=== PATIENT | male | born 1965 | race American Indian/Alaskan Native ===

== ENCOUNTER 2016-03-02 23:32 | Emergency (ER) | payer MEDICARE, OTHER ==
[2016-03-03] MEDS ORDERED: CATAPRES PO ONE (00:05)
[2016-03-03] MEDS ORDERED: CATAPRES ONE (00:11)
[2016-03-03 09:29] VITALS: BP 192/92
== END 2016-03-03 12:10 | disposition left against medical advice (07) ==
LOC: ED 23:32
DX: I10 Essential (primary) hypertension (principal); E11.9 Type 2 diabetes mellitus without complications; Z53.21 Procedure and treatment not carried out due to patient leaving prior to being seen by health care provider

== ENCOUNTER 2016-03-03 15:50 | Emergency (ER) | payer MEDICARE ==
--- NOTE | 2016-03-03 16:37 | Emergency Department Report ---
Chief Complaint: High BP Stated Complaint: HIGH BLOOD PRESSURE Time Seen by Provider: 03/03/16 16:33 - HPI History of Present Illness: 50 y/o male complain of high blood pressure x 1week and half .pt state that he took all blood meds 2 hour ago with tingling in chest .pt denies any n/v/d.pt state he current dialysis pt Mon .Wed,Fri.pt complain of headache at present . - ROS Review of Systems: per HPI - Exam Vital Signs: Vital Signs 03/03/16 16:18 Temperature 98 F Pulse Rate 77 Respiratory 18 Rate Blood Pressure 202/94 O2 Sat by Pulse 100 Oximetry Physical Exam: GENERAL: The patient is well-developed and well-nourished. Patient is in NAD. HENT: Normocephalic. Atraumatic. Patient has moist mucous membranes. Throat: No erythema, swelling or exudates. EYES: Extraocular motions are intact, PERRL NECK: Supple. No meningitic signs are noted. There is no adenopathy noted. CHEST/LUNGS: Clear to auscultation bilaterally. No wheezing, rales or rhonchi noted. There is no respiratory distress noted. HEART/CARDIOVASCULAR: Regular rate and rhythm. Normal S1 S2. No murmurs, rubs , clicks, or gallops. ABDOMEN: Abdomen is soft, nontender.. Bowel sounds normoactive. There is no abdominal distention. Negative rebound tenderness. : Deferred. SKIN: There is no rash. There is no edema. There is no diaphoresis left arm fistula noted with pos. NEURO: The patient is A&Ox3. The patient has no focal neurologic deficits. MUSCULOSKELETAL: There is no tenderness or deformity. There is no limitation range of motion. PSYCH: Pt has appropriate mood and affect. MSE screening note: Focused history and physical exam performed. Due to findings the following was ordered: ED Disposition for MSE Condition: Stable
[2016-03-03 18:09] LABS: Basophils % (Auto) 1.3 % (0.0-1.8); Eosinophils % (Auto) 4.8 % (0.0-4.3); Hematocrit 36.4 % (35.5-45.6); Mean Corpuscular HGB Conc 33 % (32-34); Mean Corpuscular Hemoglobin 31 pg (28-32); Mean Corpuscular Volume 95 fl (84-94); Platelet Count 170 K/mm3 (140-440); Red Blood Count 3.82 M/mm3 (3.65-5.03); Red Cell Distribution Width 16.8 % (13.2-15.2)
[2016-03-03 18:20] LABS: INR 1.16 (0.87-1.13)
[2016-03-03 18:21] LABS: Partial Thromboplastin Time 38.3 Sec. (24.2-36.6)
[2016-03-03 18:26] LABS: Creatine Kinase MB 3.2 ng/mL (0.0-4.0)
[2016-03-03 18:27] LABS: Calcium 8.6 mg/dL (8.4-10.2); Chloride 95.9 mmol/L (98-107)
[2016-03-03] MEDS ORDERED: APRESOLINE IV ONE ×2 (23:19→23:21)
--- NOTE | 2016-03-04 02:15 | Emergency Department Report ---
HPI - General Chief Complaint: High BP Time Seen by Provider: 03/03/16 23:17 - HPI HPI: The patient is a 50-year-old male who presents for evaluation of lightheadedness elevated blood pressure. The patient has a history of diabetes. The patient states that for the past one week he has experienced mild transient lightheadedness, elicited with standing, improved with sitting down and rests. He also reports uncontrolled blood pressure for the past one to 2 weeks. The patient denies fever, syncope, chest pain, dyspnea, cough, hemoptysis, palpitations, unilateral leg swelling, calf muscle pain. ED Past Medical Hx - Past Medical History Previous Medical History?: Yes Hx Hypertension: Yes Hx Diabetes: Yes Hx Renal Disease: Yes - Surgical History Past Surgical History?: Yes Additional Surgical History: dialysis graft to left arm - Social History Smoking Status: Former Smoker Substance Use Type: Prescribed - Medications Home Medications: Home Medications Medication Instructions Recorded Confirmed Last Taken Type Carvedilol [Coreg] 25 mg PO BID 06/14/13 03/03/16 03/03/16 History Clonidine HCl [Catapres] 0.2 mg PO TID 06/14/13 03/03/16 03/03/16 History Pravastatin Sodium [Pravastatin] 40 mg PO QHS 06/14/13 03/03/16 03/02/16 History Sevelamer Carbonate [Renvela] 4 tab PO TID 06/14/13 03/03/16 03/03/16 History Terazosin HCl 2 mg PO QHS 06/14/13 03/03/16 03/02/16 History Vitamin B Comp and C/FA/Zn Cit 1 tab PO QDAY 06/14/13 03/03/16 03/02/16 History [Dialyvite 800-Zinc 15 mg Tab] glipiZIDE [glipiZIDE ER] 10 mg PO QDAY 06/14/13 03/03/16 03/02/16 History Cinacalcet [Sensipar] 30 mg PO QDAY 03/03/16 03/03/16 03/02/16 History ED Review of Systems ROS: Stated complaint: HIGH BLOOD PRESSURE Other details as noted in HPI Constitutional: denies: fever; reports episodic lightheadedness ENT: denies: throat or neck pain Respiratory: denies: cough, shortness of breath Cardiovascular: denies: chest pain Endocrine: denies unexplained weight loss or gain Gastrointestinal: denies: abdominal pain, nausea Genitourinary: denies: dysuria Musculoskeletal: denies: leg swelling Skin: denies: rash Neurological: denies: headache Hematological/Lymphatic: denies: easy bleeding or easy bruising Psych: denies sadness or hopelessness Physical Exam - Physical Exam Vital Signs: Vital Signs 03/03/16 03/03/16 03/03/16 16:18 21:16 23:17 Temperature 98 F 98.4 F Pulse Rate 77 72 71 Respiratory 18 18 14 Rate Blood Pressure 202/94 189/92 O2 Sat by Pulse 100 100 Oximetry 03/03/16 03/03/16 03/03/16 23:20 23:30 23:40 Temperature Pulse Rate 72 72 71 Respiratory 16 20 16 Rate Blood Pressure 180/82 193/95 193/95 O2 Sat by Pulse 99 98 98 Oximetry 03/03/16 03/04/16 03/04/16 23:46 00:00 00:12 Temperature Pulse Rate 72 71 72 Respiratory 18 13 Rate Blood Pressure 193/95 200/94 200/94 O2 Sat by Pulse 99 100 Oximetry 03/04/16 03/04/16 03/04/16 00:30 00:32 00:34 Temperature Pulse Rate 73 72 72 Respiratory 14 14 15 Rate Blood Pressure 200/94 176/79 176/79 O2 Sat by Pulse 100 100 100 Oximetry 03/04/16 03/04/16 03/04/16 00:36 00:38 00:40 Temperature Pulse Rate 72 72 71 Respiratory 11 L 14 14 Rate Blood Pressure 176/79 176/79 176/79 O2 Sat by Pulse 99 100 100 Oximetry 03/04/16 03/04/16 03/04/16 00:42 00:44 00:46 Temperature Pulse Rate 71 71 72 Respiratory 9 L 13 12 Rate Blood Pressure 176/79 176/79 176/79 O2 Sat by Pulse 100 100 100 Oximetry 03/04/16 03/04/16 03/04/16 00:48 00:50 00:52 Temperature Pulse Rate 71 71 71 Respiratory 13 13 10 L Rate Blood Pressure 176/79 176/79 176/79 O2 Sat by Pulse 100 99 99 Oximetry 03/04/16 00:54 Temperature Pulse Rate 70 Respiratory 12 Rate Blood Pressure 176/79 O2 Sat by Pulse 100 Oximetry Physical Exam: General: well-nourished, well-developed, no acute distress Head: Normocephalic, atraumatic Eyes: normal sclera ENT: Mucous membranes are pale and dry Neck: No neck stiffness, no cervical adenopathy Respiratory: Breath sounds equal bilaterally, no wheezing, rales, or rhonchi Cardio: S1 and S2 present, no murmurs, rubs, gallops, capillary refill is delayed Abdomen: Normoactive bowel sounds, soft abdomen, no rigidity, no guarding or rebound tenderness Musc: No pitting edema Skin: No rash Neuro: no facial drooping, normal speech Psych: Normal affect ED Course Vital Signs 03/03/16 03/03/16 03/03/16 16:18 21:16 23:17 Temperature 98 F 98.4 F Pulse Rate 77 72 71 Respiratory 18 18 14 Rate Blood Pressure 202/94 189/92 O2 Sat by Pulse 100 100 Oximetry 03/03/16 03/03/16 03/03/16 23:20 23:30 23:40 Temperature Pulse Rate 72 72 71 Respiratory 16 20 16 Rate Blood Pressure 180/82 193/95 193/95 O2 Sat by Pulse 99 98 98 Oximetry 03/03/16 03/04/16 03/04/16 23:46 00:00 00:12 Temperature Pulse Rate 72 71 72 Respiratory 18 13 Rate Blood Pressure 193/95 200/94 200/94 O2 Sat by Pulse 99 100 Oximetry 03/04/16 03/04/16 03/04/16 00:30 00:32 00:34 Temperature Pulse Rate 73 72 72 Respiratory 14 14 15 Rate Blood Pressure 200/94 176/79 176/79 O2 Sat by Pulse 100 100 100 Oximetry 03/04/16 03/04/16 03/04/16 00:36 00:38 00:40 Temperature Pulse Rate 72 72 71 Respiratory 11 L 14 14 Rate Blood Pressure 176/79 176/79 176/79 O2 Sat by Pulse 99 100 100 Oximetry 03/04/16 03/04/16 03/04/16 00:42 00:44 00:46 Temperature Pulse Rate 71 71 72 Respiratory 9 L 13 12 Rate Blood Pressure 176/79 176/79 176/79 O2 Sat by Pulse 100 100 100 Oximetry 03/04/16 03/04/16 03/04/16 00:48 00:50 00:52 Temperature Pulse Rate 71 71 71 Respiratory 13 13 10 L Rate Blood Pressure 176/79 176/79 176/79 O2 Sat by Pulse 100 99 99 Oximetry 03/04/16 00:54 Temperature Pulse Rate 70 Respiratory 12 Rate Blood Pressure 176/79 O2 Sat by Pulse 100 Oximetry ED Medical Decision Making - Lab Data Result diagrams: 03/03/16 17:37 03/03/16 17:37 - Medical Decision Making The patient was seen and examined by myself. The patient is placed on a director of cardiac cath lab and continuous pulse ox. On initial evaluation, the patient was found to be in no distress. Evaluation orders were placed. The patient is given IV Apresoline for his elevated blood pressure. Lab results revealed elevated blood sugar of 250, and the patient is given IV insulin for his hyperglycemia. Lab results are otherwise unremarkable. On reexamination the patient's blood pressure was found to decrease below range concerning for hypertensive emergency. The patient is stable for discharge with outpatient follow-up. The patient is given follow-up and return instructions. The patient expressed understanding and agreed with the plan. The patient is discharged in stable condition. Critical care attestation.: If time is entered above; I have spent that time in minutes in the direct care of this critically ill patient, excluding procedure time. ED Disposition Clinical Impression: Acute hyperglycemia, Asymptomatic hypertensive urgency, Lightheadedness, Orthostatic lightheadedness Disposition: DISCHARGED TO HOME OR SELFCARE Is pt being admited?: No Does the pt Need Aspirin: No Condition: Stable Instructions: Chronic Hypertension (ED), Lightheadedness (ED) Referrals: PRIMARY CARE [Primary Care Provider] - 3-5 Days Time of Disposition: 01:59
[2016-03-04 02:36] VITALS: BP 170/92
== END 2016-03-04 02:36 | disposition home or self-care (01) ==
LOC: ED 15:50
DX: E11.65 Type 2 diabetes mellitus with hyperglycemia (principal); I10 Essential (primary) hypertension; R42 Dizziness and giddiness; E11.9 Type 2 diabetes mellitus without complications; N28.9 Disorder of kidney and ureter, unspecified; Z87.891 Personal history of nicotine dependence; Z88.1 Allergy status to other antibiotic agents; Z88.0 Allergy status to penicillin
CPT/HCPCS: 36415; 80048; 80061; 82550; 82553; 82962; 84484; 85025; 85610; 85730; 93005; 93010; 96374; 96375; 99284; J0360; J1815

== ENCOUNTER 2016-11-17 06:36 | Emergency (ER) | payer MEDICARE ==
[2016-11-17 07:17] LABS: Basophils % (Auto) 1.2 % (0.0-1.8); Eosinophils % (Auto) 4.3 % (0.0-4.3); Hematocrit 36.5 % (35.5-45.6); Hemoglobin 12.2 gm/dl (11.8-15.2); Mean Corpuscular HGB Conc 34 % (32-34); Mean Corpuscular Hemoglobin 30 pg (28-32); Mean Corpuscular Volume 90 fl (84-94); Platelet Count 136 K/mm3 (140-440); Red Blood Count 4.06 M/mm3 (3.65-5.03); Red Cell Distribution Width 15.5 % (13.2-15.2); White Blood Count 5.5 K/mm3 (4.5-11.0)
[2016-11-17 07:32] LABS: Calcium 9.2 mg/dL (8.4-10.2); Chloride 95.1 mmol/L (98-107); Potassium 4.7 mmol/L (3.6-5.0)
--- NOTE | 2016-11-17 13:38 | Emergency Department Report ---
- General Chief Complaint: Wound/Laceration Stated Complaint: FEET INJURY Time Seen by Provider: 11/17/16 13:27 Source: family Mode of arrival: Ambulatory Limitations: No Limitations - History of Present Illness Initial Comments: This is a 51-year-old male who was previously unknown to this provider. He has a past medical history and is on dialysis. He comes to the ER with blisters on his lower feet. There is no trauma. No fevers, chills, chest pain, shortness of breath, oral lesions, rectal discomfort. He reports that he had blisters, and then pops them. The lesions are new, they're painless, they have no exacerbating or relieving factors. -: Gradual Location: other (bilateral lower feet) Extremity Location: Left: Foot, Right: Foot Place: home Patient Tetanus UTD: Yes Associated Symptoms: other (blister, swelling) - Related Data Home Medications Medication Instructions Recorded Confirmed Last Taken Carvedilol [Coreg] 25 mg PO BID 06/14/13 03/03/16 03/03/16 Clonidine HCl [Catapres] 0.2 mg PO TID 06/14/13 03/03/16 03/03/16 Pravastatin Sodium [Pravastatin] 40 mg PO QHS 06/14/13 03/03/16 03/02/16 Sevelamer Carbonate [Renvela] 4 tab PO TID 06/14/13 03/03/16 03/03/16 Terazosin HCl 2 mg PO QHS 06/14/13 03/03/16 03/02/16 Vitamin B Comp and C/FA/Zn Cit 1 tab PO QDAY 06/14/13 03/03/16 03/02/16 [Dialyvite 800-Zinc 15 mg Tab] glipiZIDE [glipiZIDE ER] 10 mg PO QDAY 06/14/13 03/03/16 03/02/16 Cinacalcet [Sensipar] 30 mg PO QDAY 03/03/16 03/03/16 03/02/16 Previous Rx's Medication Instructions Recorded Last Taken Type Bacitracin Zinc Oint [Antibiotic 28.4 gm TP BID #1 oint...g. 11/17/16 Unknown Rx Oint] Allergies Allergy/AdvReac Type Severity Reaction Status Date / Time amoxicillin [Amoxicillin] Allergy Swelling Verified 06/13/13 19:53 Penicillins Allergy Swelling Verified 06/13/13 19:53 ED Review of Systems ROS: Stated complaint: FEET INJURY Other details as noted in HPI Constitutional: denies: fever Eyes: denies: eye discharge ENT: denies: epistaxis Respiratory: denies: cough Cardiovascular: denies: chest pain Gastrointestinal: denies: abdominal pain Genitourinary: denies: dysuria Musculoskeletal: denies: back pain Skin: lesions Neurological: denies: weakness ED Past Medical Hx - Past Medical History Hx Hypertension: Yes Hx Diabetes: Yes Hx Renal Disease: Yes - Surgical History Additional Surgical History: dialysis graft to left arm - Social History Smoking Status: Never Smoker Substance Use Type: None - Medications Home Medications: Home Medications Medication Instructions Recorded Confirmed Last Taken Type Carvedilol [Coreg] 25 mg PO BID 06/14/13 03/03/16 03/03/16 History Clonidine HCl [Catapres] 0.2 mg PO TID 06/14/13 03/03/16 03/03/16 History Pravastatin Sodium [Pravastatin] 40 mg PO QHS 06/14/13 03/03/16 03/02/16 History Sevelamer Carbonate [Renvela] 4 tab PO TID 06/14/13 03/03/16 03/03/16 History Terazosin HCl 2 mg PO QHS 06/14/13 03/03/16 03/02/16 History Vitamin B Comp and C/FA/Zn Cit 1 tab PO QDAY 06/14/13 03/03/16 03/02/16 History [Dialyvite 800-Zinc 15 mg Tab] glipiZIDE [glipiZIDE ER] 10 mg PO QDAY 06/14/13 03/03/16 03/02/16 History Cinacalcet [Sensipar] 30 mg PO QDAY 03/03/16 03/03/16 03/02/16 History Bacitracin Zinc Oint [Antibiotic 28.4 gm TP BID #1 oint...g. 11/17/16 Unknown Rx Oint] ED Physical Exam - General Limitations: No Limitations General appearance: alert, in no apparent distress - Head Head exam: Present: atraumatic, normocephalic - Eye Eye exam: Present: normal appearance, EOMI. Absent: nystagmus - ENT ENT exam: Present: normal exam, normal orophraynx, mucous membranes moist, normal external ear exam - Neck Neck exam: Present: normal inspection, full ROM. Absent: tenderness, meningismus - Respiratory Respiratory exam: Present: normal lung sounds bilaterally. Absent: respiratory distress, wheezes, rales, rhonchi, chest wall tenderness, accessory muscle use, decreased breath sounds, prolonged expiratory - Cardiovascular Cardiovascular Exam: Present: regular rate, normal rhythm, normal heart sounds. Absent: bradycardia, tachycardia, irregular rhythm, systolic murmur, diastolic murmur, rubs, gallop - GI/Abdominal GI/Abdominal exam: Present: soft, normal bowel sounds. Absent: distended, tenderness, guarding, rebound, rigid, pulsatile mass - Rectal Rectal exam: Present: deferred - Extremities Exam Extremities exam: Present: full ROM, normal capillary refill, other (there is a left upper extremity AV fistula, appropriate thrill, no redness, pus or streaking). Absent: normal inspection (on the lateral aspect of the right foot , there is a 4 x 4 area of skin removal, with no redness, pus or streaking, there is no crepitus and the compartments are soft. On the left medial aspect of the foot, there is a small 1 x 1 cm area of blister which the skin has been removed by the patient. No redness, pus or streaking. The compartments are soft.), tenderness (2+ pulses noted in the bilateral upper and lower extremities.), pedal edema, joint swelling, calf tenderness - Back Exam Back exam: Present: normal inspection, full ROM. Absent: CVA tenderness (L), muscle spasm, paraspinal tenderness, vertebral tenderness - Neurological Exam Neurological exam: Present: alert, oriented X3, normal gait, other (Extraocular movements intact. Tongue midline. No facial droop. Facial sensation intact to light touch in the V1, V2, V3 distribution bilaterally. 5 and 5 strength in 4 extremities.. Sensation is intact to light touch in 4 extremities.). Absent : motor sensory deficit - Psychiatric Psychiatric exam: Present: normal affect, normal mood - Skin Skin exam: Present: warm, normal color. Absent: rash ED Course Vital Signs 11/17/16 11/17/16 11/17/16 06:40 06:59 14:00 Temperature 97.8 F 97.8 F 97.7 F Pulse Rate 75 78 72 Respiratory 18 16 18 Rate Blood Pressure 119/54 101/62 [Left] O2 Sat by Pulse 100 100 96 Oximetry ED Medical Decision Making - Lab Data Result diagrams: 11/17/16 07:06 11/17/16 07:06 Vital Signs 11/17/16 11/17/16 06:40 06:59 Temperature 97.8 F 97.8 F Pulse Rate 75 78 Respiratory 18 16 Rate Blood Pressure 119/54 [Left] O2 Sat by Pulse 100 100 Oximetry Lab Results 11/17/16 11/17/16 Range/Units 07:06 07:06 WBC 5.5 (4.5-11.0) K/mm3 RBC 4.06 (3.65-5.03) M/mm3 Hgb 12.2 (11.8-15.2) gm/dl Hct 36.5 (35.5-45.6) % MCV 90 (84-94) fl MCH 30 (28-32) pg MCHC 34 (32-34) % RDW 15.5 H (13.2-15.2) % Plt Count 136 L (140-440) K/mm3 Lymph % (Auto) 15.7 (13.4-35.0) % [place] % (Auto) 10.3 H (0.0-7.3) % Eos % (Auto) 4.3 (0.0-4.3) % Baso % (Auto) 1.2 (0.0-1.8) % Lymph # 0.9 L (1.2-5.4) K/mm3 [place] # 0.6 (0.0-0.8) K/mm3 Eos # 0.2 (0.0-0.4) K/mm3 Baso # 0.1 (0.0-0.1) K/mm3 Seg Neutrophils % 68.5 (40.0-70.0) % Seg Neutrophils # 3.7 (1.8-7.7) K/mm3 Sodium 136 L (137-145) mmol/L Potassium 4.7 (3.6-5.0) mmol/L Chloride 95.1 L (98-107) mmol/L Carbon Dioxide 25 (22-30) mmol/L Anion Gap 21 mmol/L BUN 34 H (9-20) mg/dL Creatinine 9.3 H (0.8-1.5) mg/dL Estimated GFR 7 ml/min BUN/Creatinine Ratio 4 % Glucose 330 H (75-100) mg/dL Calcium 9.2 (8.4-10.2) mg/dL - Medical Decision Making Differential diagnosis: Friction blister, unroofed Assessment and plan: 51-year-old male with small blisters to the bilateral feet. They do not appear to be superinfected. He has no systemic complaints. No intraoral symptoms, no mucosal symptoms, no recent medications, unlikely to be Dean-Kel, toxic epidermal necrolysis , unlikely to be toxic shock syndrome. Most likely friction blister. Patient is given instructions how to care for his wounds. He specifically instructed to not apply peroxide which he has been doing. Critical care attestation.: If time is entered above; I have spent that time in minutes in the direct care of this critically ill patient, excluding procedure time. ED Disposition Clinical Impression: Blister of foot Disposition: DC-01 TO HOME OR SELFCARE Is pt being admited?: No Does the pt Need Aspirin: No Condition: Stable Instructions: Blister (ED) Additional Instructions: Do not apply peroxide to the wound. Keep wound dry. Wash once to twice daily with gentle soap and water. Apply bacitracin once every 8-12 hours to the affected regions, then cover with nonstick gauze, such as Xeroform,, then wrapped with Prabhu. Follow-up with primary care doctor or cardiovascular invasive specialist within the next 7-10 days. Return to the ER right away with fevers, chills, pus, pain, streaking, intractable nausea or vomiting, confusion, inability to tolerate liquid feeds. Prescriptions: Bacitracin Zinc Oint [Antibiotic Oint] 28.4 gm TP BID #1 oint...g. Referrals: PRIMARY CAREMD [Primary Care Provider] - 3-5 Days KAMARI BAI MD [Staff Physician] - 3-5 Days [facility] [Outside] - 3-5 Days
[2016-11-17] MEDS ORDERED: ANTIBIOTIC OINT TP SCH (14:00)
[2016-11-17 14:01] VITALS: BP 101/62
== END 2016-11-17 14:01 | disposition home or self-care (01) ==
LOC: ED 06:36
DX: S90.822A Blister (nonthermal), left foot, initial encounter (principal); S90.821A Blister (nonthermal), right foot, initial encounter; X58.XXXA Exposure to other specified factors, initial encounter; Y93.9 Activity, unspecified; Y92.9 Unspecified place or not applicable; Y99.9 Unspecified external cause status
CPT/HCPCS: 36415; 80048; 85025

== ENCOUNTER 2016-12-08 08:08 | Outpatient (CLI) | payer MEDICARE ==
[2016-12-08] MEDS ORDERED: XYLOCAINE TOPICAL 4% TP ONE ×2 (08:26→09:11)
[2016-12-08] MEDS ORDERED: SILVER NITRATE TP ONE ×2 (09:38→16:28)
[2016-12-08] MEDS ORDERED: DAKIN'S FULL STRENGTH ONE (09:41)
[2016-12-08] MEDS ORDERED: DAKIN'S FULL STRENGTH TP ONE (16:28)
== END 2016-12-08 08:09 | disposition home or self-care (01) ==
LOC: WOUND 08:08
PROVIDERS: ATTEND Surgery
DX: E11.621 Type 2 diabetes mellitus with foot ulcer (principal); L97.512 Non-pressure chronic ulcer of other part of right foot with fat layer exposed; L97.511 Non-pressure chronic ulcer of other part of right foot limited to breakdown of skin; E11.22 Type 2 diabetes mellitus with diabetic chronic kidney disease; I12.0 Hypertensive chronic kidney disease with stage 5 chronic kidney disease or end stage renal disease; N18.6 End stage renal disease; Z99.2 Dependence on renal dialysis
CPT/HCPCS: 11042; G0463

== ENCOUNTER 2016-12-15 09:14 | Outpatient (CLI) | payer MEDICARE ==
[2016-12-15] MEDS ORDERED: XYLOCAINE TOPICAL 4% TP ONE ×2 (09:38→11:42)
[2016-12-15] MEDS ORDERED: DAKIN'S FULL STRENGTH ONE (10:01)
[2016-12-15] MEDS ORDERED: DAKIN'S FULL STRENGTH TP ONE (11:42)
== END 2016-12-15 09:15 | disposition home or self-care (01) ==
LOC: WOUND 09:14
PROVIDERS: ATTEND Surgery
DX: E11.621 Type 2 diabetes mellitus with foot ulcer (principal); L97.512 Non-pressure chronic ulcer of other part of right foot with fat layer exposed; E11.22 Type 2 diabetes mellitus with diabetic chronic kidney disease; I12.0 Hypertensive chronic kidney disease with stage 5 chronic kidney disease or end stage renal disease; N18.6 End stage renal disease; Z99.2 Dependence on renal dialysis

== ENCOUNTER 2016-12-29 09:17 | Outpatient (CLI) | payer MEDICARE ==
[2016-12-29] MEDS ORDERED: XYLOCAINE TOPICAL 4% TP ONE (09:47)
[2016-12-29] MEDS ORDERED: SILVER NITRATE TP ONE (10:05)
[2016-12-30] MEDS ORDERED: SILVER NITRATE TP ONE (08:29)
== END 2016-12-29 09:18 | disposition home or self-care (01) ==
LOC: WOUND 09:17
PROVIDERS: ATTEND Surgery
DX: E11.621 Type 2 diabetes mellitus with foot ulcer (principal); L97.512 Non-pressure chronic ulcer of other part of right foot with fat layer exposed; E11.22 Type 2 diabetes mellitus with diabetic chronic kidney disease; I12.0 Hypertensive chronic kidney disease with stage 5 chronic kidney disease or end stage renal disease; N18.6 End stage renal disease; Z99.2 Dependence on renal dialysis

== ENCOUNTER 2017-01-05 09:20 | Outpatient (CLI) | payer MEDICARE ==
[2017-01-05] MEDS ORDERED: XYLOCAINE TOPICAL 4% TP ONE (09:54)
== END 2017-01-05 09:21 | disposition home or self-care (01) ==
LOC: WOUND 09:20
PROVIDERS: ATTEND Surgery
DX: E11.621 Type 2 diabetes mellitus with foot ulcer (principal); L97.511 Non-pressure chronic ulcer of other part of right foot limited to breakdown of skin; E11.22 Type 2 diabetes mellitus with diabetic chronic kidney disease; N18.6 End stage renal disease; Z99.2 Dependence on renal dialysis

== ENCOUNTER 2017-01-12 09:34 | Outpatient (CLI) | payer MEDICARE ==
[2017-01-12] MEDS ORDERED: XYLOCAINE TOPICAL 4% TP ONE (10:01)
[2017-01-12] MEDS ORDERED: SILVER NITRATE TP ONE ×2 (10:09→10:15)
== END 2017-01-12 09:35 | disposition home or self-care (01) ==
LOC: WOUND 09:34
PROVIDERS: ATTEND Surgery
DX: E11.621 Type 2 diabetes mellitus with foot ulcer (principal); L97.512 Non-pressure chronic ulcer of other part of right foot with fat layer exposed; E11.22 Type 2 diabetes mellitus with diabetic chronic kidney disease; I12.0 Hypertensive chronic kidney disease with stage 5 chronic kidney disease or end stage renal disease; N18.6 End stage renal disease; Z99.2 Dependence on renal dialysis

== ENCOUNTER 2017-01-19 09:30 | Outpatient (CLI) | payer MEDICARE ==
[2017-01-19] MEDS ORDERED: XYLOCAINE TOPICAL 4% TP ONE (09:54)
[2017-01-19] MEDS ORDERED: SILVER NITRATE TP ONE ×2 (10:27→14:55)
== END 2017-01-19 09:31 | disposition home or self-care (01) ==
LOC: WOUND 09:30
PROVIDERS: ATTEND Surgery
DX: E11.621 Type 2 diabetes mellitus with foot ulcer (principal); L97.512 Non-pressure chronic ulcer of other part of right foot with fat layer exposed; E11.40 Type 2 diabetes mellitus with diabetic neuropathy, unspecified; E11.22 Type 2 diabetes mellitus with diabetic chronic kidney disease; I12.0 Hypertensive chronic kidney disease with stage 5 chronic kidney disease or end stage renal disease; N18.6 End stage renal disease; Z99.2 Dependence on renal dialysis

== ENCOUNTER 2017-01-26 09:33 | Outpatient (CLI) | payer MEDICARE ==
[2017-01-26] MEDS ORDERED: XYLOCAINE TOPICAL 4% TP ONE (10:00)
[2017-01-26] MEDS ORDERED: SILVER NITRATE TP ONE ×2 (10:13→16:13)
[2017-01-26] MEDS ORDERED: NACL 0.9% 500 ML IR ONE (10:20)
[2017-01-26] MEDS ORDERED: NACL 0.9% IR PRN (16:13)
== END 2017-01-26 09:34 | disposition home or self-care (01) ==
LOC: WOUND 09:33
PROVIDERS: ATTEND Surgery
DX: E11.621 Type 2 diabetes mellitus with foot ulcer (principal); L97.512 Non-pressure chronic ulcer of other part of right foot with fat layer exposed; E11.22 Type 2 diabetes mellitus with diabetic chronic kidney disease; I12.0 Hypertensive chronic kidney disease with stage 5 chronic kidney disease or end stage renal disease; N18.6 End stage renal disease; Z99.2 Dependence on renal dialysis

== ENCOUNTER 2017-02-02 09:29 | Outpatient (CLI) | payer MEDICARE ==
[2017-02-02] MEDS ORDERED: XYLOCAINE TOPICAL 4% TP ONE ×2 (09:43→09:46)
[2017-02-02] MEDS ORDERED: SILVER NITRATE TP ONE ×3 (10:07→10:46)
== END 2017-02-02 09:30 | disposition home or self-care (01) ==
LOC: WOUND 09:29
PROVIDERS: ATTEND Surgery
DX: E11.621 Type 2 diabetes mellitus with foot ulcer (principal); L97.512 Non-pressure chronic ulcer of other part of right foot with fat layer exposed; E11.22 Type 2 diabetes mellitus with diabetic chronic kidney disease; I12.0 Hypertensive chronic kidney disease with stage 5 chronic kidney disease or end stage renal disease; N18.6 End stage renal disease; Z99.2 Dependence on renal dialysis

== ENCOUNTER 2017-02-09 09:34 | Outpatient (CLI) | payer MEDICARE ==
[2017-02-09] MEDS ORDERED: XYLOCAINE TOPICAL 4% TP ONE (10:12)
== END 2017-02-09 09:35 | disposition home or self-care (01) ==
LOC: WOUND 09:34
PROVIDERS: ATTEND Surgery
DX: E11.621 Type 2 diabetes mellitus with foot ulcer (principal); L97.512 Non-pressure chronic ulcer of other part of right foot with fat layer exposed; E11.22 Type 2 diabetes mellitus with diabetic chronic kidney disease; I12.0 Hypertensive chronic kidney disease with stage 5 chronic kidney disease or end stage renal disease; N18.6 End stage renal disease; Z99.2 Dependence on renal dialysis

== ENCOUNTER 2017-02-16 09:47 | Outpatient (CLI) | payer MEDICARE ==
[2017-02-16] MEDS ORDERED: XYLOCAINE TOPICAL 4% TP ONE (10:23)
[2017-02-16] MEDS ORDERED: SILVER NITRATE TP ONE ×2 (10:41→15:21)
== END 2017-02-16 09:48 | disposition home or self-care (01) ==
LOC: WOUND 09:47
PROVIDERS: ATTEND Surgery
DX: E11.621 Type 2 diabetes mellitus with foot ulcer (principal); L97.512 Non-pressure chronic ulcer of other part of right foot with fat layer exposed; E11.22 Type 2 diabetes mellitus with diabetic chronic kidney disease; I12.0 Hypertensive chronic kidney disease with stage 5 chronic kidney disease or end stage renal disease; N18.6 End stage renal disease; Z99.2 Dependence on renal dialysis

== ENCOUNTER 2017-02-23 09:31 | Outpatient (CLI) | payer MEDICARE ==
[2017-02-23] MEDS ORDERED: XYLOCAINE TOPICAL 4% TP ONE (09:48)
[2017-02-23] MEDS ORDERED: SILVER NITRATE TP ONE ×2 (10:29→13:25)
== END 2017-02-23 09:32 | disposition home or self-care (01) ==
LOC: WOUND 09:31
PROVIDERS: ATTEND Surgery
DX: E11.621 Type 2 diabetes mellitus with foot ulcer (principal); L97.512 Non-pressure chronic ulcer of other part of right foot with fat layer exposed; E11.22 Type 2 diabetes mellitus with diabetic chronic kidney disease; I12.0 Hypertensive chronic kidney disease with stage 5 chronic kidney disease or end stage renal disease; N18.6 End stage renal disease; Z99.2 Dependence on renal dialysis

== ENCOUNTER 2017-03-02 09:36 | Outpatient (CLI) | payer MEDICARE ==
[2017-03-02] MEDS ORDERED: XYLOCAINE TOPICAL 4% TP ONE (09:38)
== END 2017-03-02 09:37 | disposition home or self-care (01) ==
LOC: WOUND 09:36
PROVIDERS: ATTEND Surgery
DX: E11.621 Type 2 diabetes mellitus with foot ulcer (principal); L97.512 Non-pressure chronic ulcer of other part of right foot with fat layer exposed; E11.22 Type 2 diabetes mellitus with diabetic chronic kidney disease; I12.0 Hypertensive chronic kidney disease with stage 5 chronic kidney disease or end stage renal disease; N18.6 End stage renal disease; Z99.2 Dependence on renal dialysis

== ENCOUNTER 2017-03-09 09:31 | Outpatient (CLI) | payer MEDICARE ==
[2017-03-09] MEDS ORDERED: XYLOCAINE TOPICAL 4% TP ONE (09:57)
== END 2017-03-09 09:32 | disposition home or self-care (01) ==
LOC: WOUND 09:31
PROVIDERS: ATTEND Surgery
DX: E11.621 Type 2 diabetes mellitus with foot ulcer (principal); L97.512 Non-pressure chronic ulcer of other part of right foot with fat layer exposed; I12.0 Hypertensive chronic kidney disease with stage 5 chronic kidney disease or end stage renal disease; E11.22 Type 2 diabetes mellitus with diabetic chronic kidney disease; N18.6 End stage renal disease; Z99.2 Dependence on renal dialysis

== ENCOUNTER 2017-03-16 09:28 | Outpatient (CLI) | payer MEDICARE ==
[2017-03-16] MEDS ORDERED: XYLOCAINE TOPICAL 4% TP ONE (09:43)
[2017-03-16] MEDS ORDERED: SILVER NITRATE TP ONE ×2 (10:10→10:12)
== END 2017-03-16 09:29 | disposition home or self-care (01) ==
LOC: WOUND 09:28
PROVIDERS: ATTEND Surgery
DX: E11.621 Type 2 diabetes mellitus with foot ulcer (principal); L97.512 Non-pressure chronic ulcer of other part of right foot with fat layer exposed; E11.22 Type 2 diabetes mellitus with diabetic chronic kidney disease; I12.0 Hypertensive chronic kidney disease with stage 5 chronic kidney disease or end stage renal disease; N18.6 End stage renal disease; Z99.2 Dependence on renal dialysis

== ENCOUNTER 2017-03-23 09:26 | Outpatient (CLI) | payer MEDICARE ==
[2017-03-23] MEDS ORDERED: XYLOCAINE TOPICAL 4% TP ONE (09:42)
== END 2017-03-23 09:27 | disposition home or self-care (01) ==
LOC: WOUND 09:26
PROVIDERS: ATTEND Surgery
DX: E11.621 Type 2 diabetes mellitus with foot ulcer (principal); L97.512 Non-pressure chronic ulcer of other part of right foot with fat layer exposed; E11.40 Type 2 diabetes mellitus with diabetic neuropathy, unspecified; E11.22 Type 2 diabetes mellitus with diabetic chronic kidney disease; I12.0 Hypertensive chronic kidney disease with stage 5 chronic kidney disease or end stage renal disease; N18.6 End stage renal disease; Z99.2 Dependence on renal dialysis

== ENCOUNTER 2017-03-30 09:04 | Outpatient (CLI) | payer MEDICARE ==
[2017-03-30] MEDS ORDERED: XYLOCAINE TOPICAL 4% TP ONE (09:12)
== END 2017-03-30 09:05 | disposition home or self-care (01) ==
LOC: WOUND 09:04
PROVIDERS: ATTEND Surgery
DX: E11.621 Type 2 diabetes mellitus with foot ulcer (principal); L97.512 Non-pressure chronic ulcer of other part of right foot with fat layer exposed; E11.22 Type 2 diabetes mellitus with diabetic chronic kidney disease; I12.0 Hypertensive chronic kidney disease with stage 5 chronic kidney disease or end stage renal disease; N18.6 End stage renal disease; Z99.2 Dependence on renal dialysis

== ENCOUNTER 2017-04-06 09:33 | Outpatient (CLI) | payer MEDICARE ==
[2017-04-06] MEDS ORDERED: XYLOCAINE TOPICAL 4% TP ONE ×2 (09:48→09:50)
== END 2017-04-06 09:34 | disposition home or self-care (01) ==
LOC: WOUND 09:33
PROVIDERS: ATTEND Surgery
DX: E11.621 Type 2 diabetes mellitus with foot ulcer (principal); L97.512 Non-pressure chronic ulcer of other part of right foot with fat layer exposed; E11.22 Type 2 diabetes mellitus with diabetic chronic kidney disease; I12.0 Hypertensive chronic kidney disease with stage 5 chronic kidney disease or end stage renal disease; N18.6 End stage renal disease; Z99.2 Dependence on renal dialysis

== ENCOUNTER 2017-04-13 14:00 | Outpatient (CLI) | payer MEDICARE ==
[2017-04-13] MEDS ORDERED: XYLOCAINE TOPICAL 4% TP ONE (14:17)
[2017-04-15] MEDS ORDERED: XYLOCAINE TOPICAL 4% TP ONE (16:13)
== END 2017-04-13 14:01 | disposition home or self-care (01) ==
LOC: WOUND 14:00
PROVIDERS: ATTEND Surgery
DX: E11.621 Type 2 diabetes mellitus with foot ulcer (principal); L97.512 Non-pressure chronic ulcer of other part of right foot with fat layer exposed; E11.22 Type 2 diabetes mellitus with diabetic chronic kidney disease; I12.0 Hypertensive chronic kidney disease with stage 5 chronic kidney disease or end stage renal disease; N18.6 End stage renal disease; Z99.2 Dependence on renal dialysis

== ENCOUNTER 2017-04-20 09:29 | Outpatient (CLI) | payer MEDICARE ==
[2017-04-20] MEDS ORDERED: XYLOCAINE TOPICAL 4% TP ONE (09:41)
== END 2017-04-20 09:30 | disposition home or self-care (01) ==
LOC: WOUND 09:29
PROVIDERS: ATTEND Surgery
DX: E11.621 Type 2 diabetes mellitus with foot ulcer (principal); L97.512 Non-pressure chronic ulcer of other part of right foot with fat layer exposed; E11.22 Type 2 diabetes mellitus with diabetic chronic kidney disease; I12.0 Hypertensive chronic kidney disease with stage 5 chronic kidney disease or end stage renal disease; N18.6 End stage renal disease; Z99.2 Dependence on renal dialysis
CPT/HCPCS: 97597

== ENCOUNTER 2018-05-26 08:12 | Outpatient (CLI) | payer MEDICARE ==
[2018-05-26] MEDS ORDERED: XYLOCAINE TOPICAL 4% TP ONE (09:00)
[2018-05-26] MEDS ORDERED: AD OINTMENT TP SCH (10:00)
[2018-05-26] MEDS ORDERED: THERMAZENE 50 GRAM TP SCH (10:00)
== END 2018-05-26 08:13 | disposition home or self-care (01) ==
LOC: WOUND 08:12
PROVIDERS: ATTEND Surgery
DX: E11.621 Type 2 diabetes mellitus with foot ulcer (principal); L97.522 Non-pressure chronic ulcer of other part of left foot with fat layer exposed; L84 Corns and callosities; I10 Essential (primary) hypertension
CPT/HCPCS: 11042; G0463; 99215; A6250

== ENCOUNTER 2018-06-02 09:38 | Outpatient (CLI) | payer MEDICARE ==
--- NOTE | 2018-06-02 23:48 | Vascular Lab Report ---
PROCEDURE: VL ARTERIAL DUPLEX LE BILAT TECHNIQUE: Real-time color duplex sonography was performed of the bilateral lower extremity arterial systems and images are submitted for interpretation. HISTORY: Peripheral vascular disease . COMPARISONS: 12/17/2016 . Right: Velocities: Proximal common femoral artery: Peak systolic 118 cm/s, triphasic flow Distal common femoral artery: Peak systolic 78 cm/s, triphasic flow Proximal superficial femoral artery: Peak systolic 98 cm/s, triphasic flow Deep femoral artery: Peak systolic 89 cm/s, triphasic flow Mid superficial femoral artery: Peak systolic 68 cm/s, triphasic flow Popliteal artery: Peak systolic 86 cm/s, triphasic flow Posterior tibialis artery: Peak systolic 99 cm/s, triphasic flow Anterior tibialis artery: Peak systolic 28 cm/s, triphasic flow Left: Velocities: Proximal common femoral artery: Peak systolic 119 cm/s, triphasic flow Distal common femoral artery: Peak systolic 82 cm/s, triphasic flow Proximal superficial femoral artery: Peak systolic 105 cm/s, triphasic flow Deep femoral artery: Peak systolic 98 cm/s, triphasic flow Mid superficial femoral artery: Peak systolic 104 cm/s, triphasic flow Distal superficial femoral artery: Peak systolic 100 cm/s, triphasic flow Popliteal artery: Peak systolic 95 cm/s, triphasic flow Posterior tibialis artery: Peak systolic 104 cm/s, triphasic flow Anterior tibialis artery: Peak systolic 181 cm/s, biphasic flow IMPRESSION: 1. No hemodynamically significant stenosis in the right lower extremity 2. Suspect high-grade stenosis in the left anterior tibialis artery This document is electronically signed by Mariel Bacon MD., June 02 2018 11:45:43 PM ET
== END 2018-06-02 09:39 | disposition home or self-care (01) ==
LOC: VAS 09:38
PROVIDERS: ATTEND Surgery
DX: E11.621 Type 2 diabetes mellitus with foot ulcer (principal); I82.402 Acute embolism and thrombosis of unspecified deep veins of left lower extremity; L97.522 Non-pressure chronic ulcer of other part of left foot with fat layer exposed; I12.0 Hypertensive chronic kidney disease with stage 5 chronic kidney disease or end stage renal disease; E11.22 Type 2 diabetes mellitus with diabetic chronic kidney disease; N18.6 End stage renal disease
CPT/HCPCS: 93925; 97597

== ENCOUNTER 2018-06-02 11:08 | Outpatient (CLI) | payer MEDICARE | END 2018-06-02 11:09 | disposition home or self-care (01) | LOC: WOUND 11:08 | PROVIDERS: ATTEND Surgery | DX: E11.621 Type 2 diabetes mellitus with foot ulcer (principal); L97.522 Non-pressure chronic ulcer of other part of left foot with fat layer exposed; L84 Corns and callosities; I10 Essential (primary) hypertension | CPT/HCPCS: 97597 ==

== ENCOUNTER 2018-06-24 14:13 | Outpatient (CLI) | payer MEDICARE ==
--- NOTE | 2018-06-24 15:01 | XRay Report ---
Chest 2 views: History: Cough. Findings: Heart size is upper to normal. Trachea is midline. No consolidation, pneumothorax or pleural effusion. Impression: No acute cardiopulmonary findings.
== END 2018-06-24 14:14 | disposition home or self-care (01) ==
LOC: XRAY 14:13
PROVIDERS: ATTEND Surgery
DX: E11.621 Type 2 diabetes mellitus with foot ulcer (principal); L97.522 Non-pressure chronic ulcer of other part of left foot with fat layer exposed; I12.0 Hypertensive chronic kidney disease with stage 5 chronic kidney disease or end stage renal disease; E11.22 Type 2 diabetes mellitus with diabetic chronic kidney disease; N18.6 End stage renal disease
CPT/HCPCS: 71046

== ENCOUNTER 2018-06-30 08:34 | Outpatient (CLI) | payer MEDICARE ==
[2018-06-30] MEDS ORDERED: XYLOCAINE TOPICAL 4% TP NR (09:30)
[2018-06-30] MEDS ORDERED: SILVER NITRATE TP NR (09:30)
[2018-06-30] MEDS ORDERED: AD OINTMENT TP PRN (10:00)
== END 2018-06-30 08:35 | disposition home or self-care (01) ==
LOC: WOUND 08:34
PROVIDERS: ATTEND Surgery
DX: T87.89 Other complications of amputation stump (principal); E11.621 Type 2 diabetes mellitus with foot ulcer; L97.522 Non-pressure chronic ulcer of other part of left foot with fat layer exposed; I10 Essential (primary) hypertension; Y83.5 Amputation of limb(s) as the cause of abnormal reaction of the patient, or of later complication, without mention of misadventure at the time of the procedure
CPT/HCPCS: A6250

== ENCOUNTER 2020-07-29 15:27 | Emergency (ER) | payer MEDICARE | END 2020-07-29 17:30 | disposition left against medical advice (07) | LOC: ED 15:27 ==

== ENCOUNTER 2020-08-07 13:48 | Outpatient (CLI) | payer MEDICARE ==
[2020-08-07] MEDS ORDERED: LIDOCAINE (4%) 40 MG/ML TOPICAL SOLN 50 ML BOTTLE TP ONE (15:15)
== END 2020-08-07 13:49 | disposition home or self-care (01) ==
LOC: WOUND 13:48
PROVIDERS: ATTEND Surgery
DX: E11.621 Type 2 diabetes mellitus with foot ulcer (principal); L97.512 Non-pressure chronic ulcer of other part of right foot with fat layer exposed; I10 Essential (primary) hypertension; Z99.2 Dependence on renal dialysis